=== PATIENT | female | born 1990 | race Hispanic/Latino ===

== ENCOUNTER 2022-01-26 10:44 | Emergency (ER) | payer OTHER ==
[~2022-01-26] VITALS: Ht 172.7 cm; Wt 99.8 kg
[2022-01-26 11:27] LABS: BASOPHILS % (AUTO) 0.4 % (0.0-5.0); EOSINOPHILS % (AUTO) 0.4 % (0.0-8.0); HEMATOCRIT 47.1 % (36-48); LYMPHOCYTES % (AUTO) 21.8 % (21.0-51.0); MEAN CORPUSCULAR HEMOGLOBIN 29.4 pg (27.0-33.0); MEAN CORPUSCULAR HGB CONC 32.9 g/dL (32.0-36.0); MEAN CORPUSCULAR VOLUME 89.2 fL (79-99); MONOCYTES % (AUTO) 3.8 % (3.0-13.0); NEUTROPHILS % (AUTO) 73.2 % (40.0-77.0); PLATELET COUNT (AUTO) 324 K/uL (130-400); RED BLOOD CELL COUNT(AUTO) 5.28 MIL/uL (4.00-5.50); RED CELL DISTRIBUTION WIDTH 13.6 % (11.0-15.5); WHITE BLOOD COUNT (AUTO) 14.6 K/uL (4.8-10.8)
[2022-01-26 11:32] LABS: CREATININE 0.9 mg/dL (0.5-1.5); POTASSIUM 4.1 mmol/L (3.5-5.1)
[2022-01-26 11:37] LABS: ALBUMIN 3.7 g/dL (3.5-5.0); BILIRUBIN,TOTAL 0.7 mg/dL (0.2-1.0); TOTAL PROTEIN, SERUM 7.9 g/dL (6.0-8.3)
[2022-01-26] MEDS ORDERED: MECLIZINE HCL 12.5 MG TABLET PO ONE (13:00)
[2022-01-26] MEDS ORDERED: IBUPROFEN 600 MG TABLET PO ONE (13:00)
[2022-01-26] MEDS ORDERED: IBUP-2070 PO (14:00)
[2022-01-26] MEDS ORDERED: MECL-226 PO (14:00)
[2022-01-26 16:30] VITALS: BP 126/74
== END 2022-01-26 16:27 | disposition home or self-care (01) ==
LOC: EDH 10:44
DX: R42 Dizziness and giddiness (principal); R51.9 Headache, unspecified; R11.0 Nausea; Z79.1 Long term (current) use of non-steroidal anti-inflammatories (NSAID)
CPT/HCPCS: 36415; 70450; 80053; 85025; 93005

== ENCOUNTER 2022-08-24 01:01 | Emergency (ER) | payer OTHER ==
[~2022-08-24] VITALS: Ht 172.7 cm; Wt 95.7 kg
[~2022-08-24 01:01] MED LIST: IBUP-2070 PO; MECL-226 PO
[2022-08-24] MEDS ORDERED: 0.9%NACL 1000ML 1,000 ML IV ONE (01:30)
[2022-08-24] MEDS ORDERED: ONDANSETRON 4MG INJ IVP ONE (01:30)
[2022-08-24 01:35] LABS: BASOPHILS % (AUTO) 0.3 % (0.0-5.0); EOSINOPHILS % (AUTO) 0.9 % (0.0-8.0); HEMATOCRIT 42.8 % (36-48); LYMPHOCYTES % (AUTO) 27.4 % (21.0-51.0); MEAN CORPUSCULAR HEMOGLOBIN 29.8 pg (27.0-33.0); MEAN CORPUSCULAR HGB CONC 34.6 g/dL (32.0-36.0); MEAN CORPUSCULAR VOLUME 86.1 fL (79-99); PLATELET COUNT (AUTO) 325 K/uL (130-400); RED BLOOD CELL COUNT(AUTO) 4.97 MIL/uL (4.00-5.50); RED CELL DISTRIBUTION WIDTH 13.3 % (11.0-15.5); WHITE BLOOD COUNT (AUTO) 17.1 K/uL (4.8-10.8)
[2022-08-24 01:39] LABS: APPEARANCE,URINE CLOUDY (CLEAR); BILIRUBIN,URINE NEGATIVE (NEGATIVE); COLOR,URINE YELLOW (YELLOW); GLUCOSE, URINE (UA) NEGATIVE (NEGATIVE); KETONES,URINE 5 mg/dL (NEGATIVE); LEUKOCYTE ESTERASE ,URINE 500 Leu/uL (NEGATIVE); NITRATE,URINE NEGATIVE (NEGATIVE); PROTEIN,URINE 20 mg/dL (NEGATIVE); UROBILINOGEN,URINE 0.2 mg/dL (0.2-1.0)
[2022-08-24 01:43] LABS: CREATININE 0.7 mg/dL (0.5-1.5); POTASSIUM 3.5 mmol/L (3.5-5.1)
[2022-08-24 01:46] LABS: BACTERIA,URINE RARE /HPF (None Seen); MUCUS,URINE RARE LPF (None Seen); SQUAMOUS EPITHELIAL CELL,UR MANY /HPF (0-2); WBC,URINE 26-50 /HPF (0-1)
[2022-08-24 01:47] LABS: ALBUMIN 3.7 g/dL (3.5-5.0); TOTAL PROTEIN, SERUM 7.8 g/dL (6.0-8.3)
[2022-08-24 01:58] LABS: HCG,QUALITATIVE URINE NEGATIVE (NEGATIVE)
[2022-08-24] MEDS ORDERED: PROCHLORPERAZINE 10MG/2ML INJ IV ONE (03:00)
[2022-08-24] MEDS ORDERED: CEFTRIAXONE 1G VIAL ONE (03:21)
[2022-08-24] MEDS ORDERED: KETOROLAC 15MG/ML VIAL (15MG/ML) ONE (03:27)
[2022-08-24] MEDS ORDERED: CEFTRIAXONE 1G VIAL IVP ONE (03:30)
[2022-08-24] MEDS ORDERED: KETOROLAC 15MG/ML VIAL (15MG/ML) IV ONE (03:30)
[2022-08-24] MEDS ORDERED: CEPH500B PO (03:37)
[2022-08-24] MEDS ORDERED: PROC5TAB54 PO (03:38)
[2022-08-24 03:52] VITALS: BP 132/67
== END 2022-08-24 03:57 | disposition home or self-care (01) ==
LOC: EDH 01:01
DX: N39.0 Urinary tract infection, site not specified (principal)
CPT/HCPCS: 99284; 96374; 96375; 80053; 83690; 85025; 87088; 81001; 81025; 36415; J7030; J0780; J0696; J2405; J1885

== ENCOUNTER 2024-07-18 14:03 | Emergency (ER) | payer SELFPAY ==
[~2024-07-18] VITALS: Ht 172.7 cm; Wt 93.0 kg
[~2024-07-18 14:03] MED LIST changes: +CEPH500B PO; +PROC5TAB54 PO
[2024-07-18 14:14] VITALS: BP 135/85; PULSE 95; RESP 16; TEMP 98.3; O2SAT 99
[2024-07-18 14:46] LABS: ADD UA MICROSCOPIC YES; APPEARANCE,URINE CLEAR (CLEAR); BILIRUBIN,URINE NEGATIVE (NEGATIVE); COLOR,URINE LIGHT-YELLOW (YELLOW); GLUCOSE, URINE (UA) NEGATIVE (NEGATIVE); KETONES,URINE NEGATIVE (NEGATIVE); LEUKOCYTE ESTERASE ,URINE 25 Leu/uL (NEGATIVE); NITRATE,URINE NEGATIVE (NEGATIVE); OCCULT BLOOD,URINE NEGATIVE (NEGATIVE); PROTEIN,URINE NEGATIVE (NEGATIVE); UROBILINOGEN,URINE 0.2 mg/dL (0.2-1.0)
[2024-07-18 14:55] LABS: HCG,QUALITATIVE URINE POSITIVE (NEGATIVE)
[2024-07-18 15:00] LABS: BACTERIA,URINE RARE /HPF (None Seen); MUCUS,URINE RARE LPF (None Seen); RBC,URINE 0-1 /HPF (0-1); SQUAMOUS EPITHELIAL CELL,UR RARE /HPF (0-2)
[2024-07-18 15:23] LABS: BASOPHILS # (AUTO) 0.06 K/uL (0.00-0.20); BASOPHILS % (AUTO) 0.4 % (0.0-5.0); EOSINOPHILS # (AUTO) 0.51 K/uL (0.00-0.70); EOSINOPHILS % (AUTO) 3.2 % (0.0-8.0); HEMATOCRIT 42.3 % (36-48); IMMATURE GRANULOCYTE ABSOLUTE 0.07 K/uL (0-1); LYMPHOCYTES # (AUTO) 2.5 K/uL (1.0-4.8); MEAN CORPUSCULAR HEMOGLOBIN 29.7 pg (27.0-33.0); MEAN CORPUSCULAR VOLUME 87.2 fL (79-99); MONOCYTES # (AUTO) 0.6 K/uL (0.1-1.0); MONOCYTES % (AUTO) 3.7 % (3.0-13.0); NEUTROPHILS % (AUTO) 76.3 % (40.0-77.0); PLATELET COUNT (AUTO) 343 K/uL (130-400); RED BLOOD CELL COUNT(AUTO) 4.85 MIL/uL (4.00-5.50); RED CELL DISTRIBUTION WIDTH 12.8 % (11.0-15.5); WHITE BLOOD COUNT (AUTO) 15.8 K/uL (4.8-10.8)
[2024-07-18 15:30] LABS: CREATININE 0.6 mg/dL (0.5-1.0); POTASSIUM 4.1 mmol/L (3.5-5.1)
[2024-07-18] MEDS: 0.9%NACL 1000ML 1,000 ML IV STA (16:15)
== END 2024-07-18 16:57 | disposition home or self-care (01) ==
LOC: EDH 14:03
DX: O20.9 Hemorrhage in early pregnancy, unspecified (principal); O26.892 Other specified pregnancy related conditions, second trimester; R10.2 Pelvic and perineal pain; Z3A.08 8 weeks gestation of pregnancy
CPT/HCPCS: 99284; 96360; 76801; 80048; 84702; 85025; 81001; 81025; 36415; J7030